=== PATIENT | female | born 1970 | race Caucasian/White ===

== ENCOUNTER 2018-06-06 07:01 | Day surgery (SDC) | payer BC ==
[2018-06-06 08:14] LABS: WHITE BLOOD COUNT 2.7 10^3/ul (4.8-10.8)
[2018-06-06 08:14] LABS: ABNORMAL IP MESSAGE 1; HEMATOCRIT 42.2 % (37.0-47.0); MEAN CORPUSCULAR HEMOGLOBIN 29.8 pg (29.0-33.0); MEAN CORPUSCULAR HGB CONC 33.2 g/dl (32.0-37.0); MEAN CORPUSCULAR VOLUME 89.8 fl (82.0-101.0); MEAN PLATELET VOLUME 10.8 fl (7.4-10.4); PLATELET COUNT 213 10^3/UL (140-415); RED CELL DISTRIBUTION WIDTH 12.9 % (11.5-14.5)
[2018-06-06 08:16] LABS: HOLD TRANSMISSIONS 1; POSITIVE DIFF @See below
[2018-06-06 08:17] LABS: ADD MAN DIFF? YES
[2018-06-06] MEDS ORDERED: VERAPAMIL 5 MG INJ (08:22)
[2018-06-06] MEDS ORDERED: LIDOCAINE 1% (MDV) 10 ML INJ ×3 (08:22→09:37)
[2018-06-06] MEDS ORDERED: MIDAZOLAM 1 MG/ML 2 ML INJ ×2 (08:22→09:46)
[2018-06-06] MEDS ORDERED: IODIXANOL LOCM 100 ML BTL (08:22)
[2018-06-06] MEDS ORDERED: FENTAnyl 50 MCG/ML VIAL (08:22)
[2018-06-06] MEDS ORDERED: HEPARIN 1000 UNITS/ML 10 ML INJ (08:22)
[2018-06-06] MEDS ORDERED: NITROGLYCERIN (IC) 100 MCG/ML INJ ×2 (08:23→10:05)
[2018-06-06 08:30] LABS: CHOL/HDL RATIO 2.5 RATIO; HDL CHOLESTEROL 54 mg/dl (34-88); LDL CHOLESTEROL,CALCULATED 66 mg/dl; TRIGLYCERIDES 84 mg/dl (0-149)
[2018-06-06 08:30] LABS: CHOLESTEROL 137 mg/dl (100-200)
[2018-06-06 08:31] LABS: ANION GAP 9 (8-16); BLOOD UREA NITROGEN 18 mg/dl (7-20); CALCIUM 9.3 mg/dl (8.4-10.2); CARBON DIOXIDE 26 mmol/L (21-31); CHLORIDE 112 mmol/L (97-110); CREATININE 0.97 mg/dl (0.44-1.00); GLUCOSE 95 mg/dl (70-220); POTASSIUM 4.1 mmol/L (3.5-5.1); SODIUM 143 mmol/L (135-144)
[2018-06-06 08:33] LABS: INR 0.92; PROTIME 12.4 Sec (11.9-14.9)
[2018-06-06 08:34] LABS: PARTIAL THROMBOPLASTIN TIME 28.6 Sec (25.0-35.0)
[2018-06-06 09:06] LABS: ANISOCYTOSIS 1+ (0-0); EOSINOPHILS % (M) 5 % (0-7); ERYTHROBLAST% (NRBC) (M) 1 % (0-0); GIANT THROMBO% (M) 1 % (0-0); LYMPHOCYTES #M 1.6 10^3/ul (0.8-2.9); LYMPHOCYTES % (M) 61 % (15-51); METAMYELOCYTES %M 1 % (0-0); MONOCYTE #M 0.4 10^3/ul (0.3-0.9); MONOCYTES % (M) 17 % (0-11); PLATELET ESTIMATE NORMAL; POLYCHROMASIA 1+ (0-0); REACTIVE LYMPHOCYTES #M 0.1 10^3/ul (0.0-0.0); REACTIVE LYMPHOCYTES% (M) 5 % (0-0); SEGMENTED NEUTROPHILS (M) % 10 % (39-77); SMUDGE%M 5 % (0-0)
[2018-06-06] MEDS ORDERED: ONDANSETRON 4 MG INJ IV (10:30)
[2018-06-06] MEDS ORDERED: morphine 2 MG INJ IV (10:30)
[2018-06-06] MEDS ORDERED: AL HYDROX/MG HYDROX/SIMETH 30 ML CUP PO (10:30)
[2018-06-06] MEDS: SOD CHLORIDE 0.9% 1,000 ML IV (10:50)
[2018-06-06] MEDS: ACETAMINOPHEN 325 MG TAB PO (11:31)
== END 2018-06-06 15:00 | disposition home or self-care (01) ==
LOC: SDS 07:01
DX: R07.9 Chest pain, unspecified (principal); R94.39 Abnormal result of other cardiovascular function study; I10 Essential (primary) hypertension; E78.5 Hyperlipidemia, unspecified
CPT/HCPCS: 71045; 80048; 80061; 85025; 85610; 85730; 93005; 93458